=== PATIENT | male | born 1980 | race Caucasian/White ===

== ENCOUNTER 2024-05-12 10:53 | Outpatient (CLI) | payer OTHER | END 2024-05-12 23:59 | disposition home or self-care (01) | LOC: MRI 10:53 | PROVIDERS: ATTEND General Practice | DX: S83.91XA Sprain of unspecified site of right knee, initial encounter (principal); S16.1XXA Strain of muscle, fascia and tendon at neck level, initial encounter; M67.864 Other specified disorders of tendon, left knee; X58.XXXA Exposure to other specified factors, initial encounter; Y93.89 Activity, other specified; Y92.89 Other specified places as the place of occurrence of the external cause; Y99.8 Other external cause status | CPT/HCPCS: 73721 ==